=== PATIENT | female | born 1980 | race Caucasian/White ===

== ENCOUNTER 2016-08-28 00:55 | Emergency (ER) | payer OTHER ==
[2016-08-28 02:10] LABS: BASOPHIL 0.1 % (0-2); EOSINOPHIL 0.5 % (0-5); HGB 9.3 g/dl (12.5-16.0); LYMPHOCYTE 4.8 % (15-48); MCH 31.8 pg (25.0-31.0); MCHC 34.4 g/dL (32.0-36.0); MCV 92.5 fL (78.0-100.0); MONOCYTE 5.8 % (0-12); MPV 9.8 fL (6.0-9.5); NEUTROPHIL 88.8 % (41-80); PLT 224 K/uL (150-400); RBC 2.92 M/uL (4.20-5.40)
[2016-08-28 02:20] LABS: ALBUMIN 2.8 g/dL (3.5-5.0); BILIRUBIN - TOTAL 0.2 mg/dL (0.1-1.0); GLOBULIN (CALCULATION) 3.9 g/dL (2.2-4.2); LACTIC ACID 2.2 mmol/L (0.5-2.2); POTASSIUM 2.8 mmol/L (3.5-5.1); TOTAL PROTEIN 6.7 g/dL (6.4-8.3)
[2016-08-28 02:23] LABS: CREATININE 12.3 mg/dL (0.5-1.0)
== END 2016-08-28 23:21 | disposition other institution (70) ==
LOC: FER 00:55
PROVIDERS: Emergency Medicine
DX: N18.6 End stage renal disease (principal); D72.829 Elevated white blood cell count, unspecified; R79.89 Other specified abnormal findings of blood chemistry; Z79.899 Other long term (current) drug therapy; Z99.2 Dependence on renal dialysis
CPT/HCPCS: 36415; 74022; 80053; 83605; 83690; 84484; 84703; 85025; 87804; 87899; 93005; J2405

== ENCOUNTER 2021-08-07 13:33 | Emergency (ER) | payer OTHER, MEDICARE ==
[2021-08-07 15:01] LABS: BASOPHIL 0 % (0-2); EOSINOPHIL 0 % (0-5); HCT 41.4 % (37.0-47.0); HGB 12.9 g/dl (12.5-16.0); LYMPHOCYTE 13.1 % (15-48); MCH 30.3 pg (25.0-31.0); MCHC 31.2 g/dL (32.0-36.0); MCV 97.2 fL (78.0-100.0); MONOCYTE 13.1 % (0-12); MPV 12.3 fL (6.0-9.5); NEUTROPHIL 73.1 % (41-80); NRBC 0; PLT 76 K/uL (150-400); RBC 4.26 M/uL (4.20-5.40); RDW 12.6 % (11.5-14.0)
[2021-08-07 15:08] LABS: WBC 1.4 K/uL (4.0-10.5)
[2021-08-07 15:13] LABS: ALBUMIN 3.1 g/dL (3.4-5.0); BILIRUBIN - TOTAL 0.5 mg/dL (0.2-1.0); BUN/CREAT RATIO (CALC) 21.5 RATIO; CREATININE 0.93 mg/dL (0.51-0.95); POTASSIUM 4.8 mmol/L (3.5-5.1); TOTAL PROTEIN 7.1 g/dL (6.4-8.2)
[2021-08-07 15:53] LABS: MAGNESIUM 1.5 mg/dL (1.8-2.4); PHOSPHORUS 2.6 mg/dL (2.6-4.7)
[2021-08-07] MEDS ORDERED: ONDANSETRON ODT4 MG PO (18:51)
[2021-08-07] MEDS ORDERED: PHENERGAN25 M1 PO (18:53)
[2021-08-07] MEDS ORDERED: ZPAK PO (23:11)
== END 2021-08-07 23:25 | disposition home or self-care (01) ==
LOC: FER 13:33
PROVIDERS: Emergency Medicine
DX: U07.1 COVID-19 (principal); E10.9 Type 1 diabetes mellitus without complications; Z23 Encounter for immunization; Z94.0 Kidney transplant status
CPT/HCPCS: 36415; 71045; 80053; 82150; 83690; 83735; 84100; 85025; 93005; C9399; J3475; J7030; J7050; Q0169; U0002

== ENCOUNTER 2021-08-09 13:40 | Emergency (ER) | payer OTHER, MEDICARE ==
[~2021-08-09 13:40] MED LIST: ONDANSETRON ODT4 MG PO; PHENERGAN25 M1 PO; ZPAK PO
[2021-08-09 17:42] LABS: BASOPHIL 0 % (0-2); EOSINOPHIL 0 % (0-5); HCT 41.5 % (37.0-47.0); HGB 13.1 g/dl (12.5-16.0); LYMPHOCYTE 15.3 % (15-48); MCH 30.1 pg (25.0-31.0); MCHC 31.6 g/dL (32.0-36.0); MCV 95.4 fL (78.0-100.0); MONOCYTE 16.7 % (0-12); MPV 12.5 fL (6.0-9.5); NEUTROPHIL 67.3 % (41-80); NRBC 0; RBC 4.35 M/uL (4.20-5.40); RDW 12.6 % (11.5-14.0)
[2021-08-09 17:43] LABS: BILIRUBIN 2+ mg/dL (NEGATIVE); BLOOD 2+ Ery/uL (NEGATIVE); CLARITY CLEAR (CLEAR); COLOR YELLOW (YELLOW); GLUCOSE (U) NORMAL (NORMAL); LEUKOCYTES NEGATIVE Leu/uL (NEGATIVE); NITRITE NEGATIVE (NEGATIVE); PROTEIN 1+ mg/dL (NEGATIVE); SPECIFIC GRAVITY >=1.030 (1.001-1.030); UROBILINOGEN 0.2 mg/dL (0.2-1.0)
[2021-08-09 17:54] LABS: BUN/CREAT RATIO (CALC) 16.7 RATIO; CREATININE 1.2 mg/dL (0.51-0.95)
[2021-08-09 17:56] LABS: BACTERIA 3+
[2021-08-09 18:08] LABS: PLT 89 K/uL (150-400)
[2021-08-09 18:09] LABS: WBC 1.4 K/uL (4.0-10.5)
[2021-08-09] MEDS ORDERED: VENTOLIN HFA IN18 GM INH (21:37)
[2021-08-09] MEDS ORDERED: TESSALON PERLE100 MG PO (21:37)
[2021-08-09] MEDS ORDERED: PULMICORT FLE180 MCG INH (21:37)
[2021-08-09] MEDS ORDERED: ROBITUSSIN W/COD5 ML PO (21:37)
== END 2021-08-09 22:10 | disposition home or self-care (01) ==
LOC: FER 13:40
PROVIDERS: Nurse Practitioner Family
DX: U07.1 COVID-19 (principal); E11.9 Type 2 diabetes mellitus without complications; Z23 Encounter for immunization; Z94.0 Kidney transplant status
CPT/HCPCS: 36415; 80048; 81001; 85025; 94640; 94664; J2550; J7030; U0002